=== PATIENT | female | born 1960 | race Caucasian/White ===

== ENCOUNTER 2024-09-06 05:51 | Day surgery (SDC) | payer MEDICARE ==
[2024-09-03 15:03] VITALS: BP 140/68; PULSE 107; RESP 17; TEMP 97.4
--- NOTE | 2024-09-03 15:25 | EKG ---
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
[2024-09-03 19:10] LABS: BASOPHILS # (AUTO) 0.06 K/uL (0.00-0.20); BASOPHILS % (AUTO) 0.7 % (0.0-5.0); EOSINOPHILS # (AUTO) 0.36 K/uL (0.00-0.70); EOSINOPHILS % (AUTO) 4.2 % (0.0-8.0); HEMATOCRIT 46.1 % (36-48); IMMATURE GRANULOCYTE ABSOLUTE 0.03 K/uL (0-1); LYMPHOCYTES # (AUTO) 2.5 K/uL (1.0-4.8); LYMPHOCYTES % (AUTO) 29.4 % (21.0-51.0); MEAN CORPUSCULAR HEMOGLOBIN 27.7 pg (27.0-33.0); MEAN CORPUSCULAR HGB CONC 31.9 g/dL (32.0-36.0); MEAN CORPUSCULAR VOLUME 86.8 fL (79-99); MONOCYTES # (AUTO) 0.5 K/uL (0.1-1.0); NEUTROPHILS # (AUTO) 5.1 K/uL (1.8-7.7); NEUTROPHILS % (AUTO) 59.3 % (40.0-77.0); PLATELET COUNT (AUTO) 274 K/uL (130-400); RED BLOOD CELL COUNT(AUTO) 5.31 MIL/uL (4.00-5.50); RED CELL DISTRIBUTION WIDTH 13.2 % (11.0-15.5); WHITE BLOOD COUNT (AUTO) 8.5 K/uL (4.8-10.8)
[2024-09-03 19:11] LABS: CREATININE 0.7 mg/dL (0.5-1.0); POTASSIUM 4.4 mmol/L (3.5-5.1)
[2024-09-03 19:15] LABS: INR 1.13 (0.85-1.15); PROTHROMBIN TIME 11.8 SEC (9.6-11.6)
[2024-09-03 19:17] LABS: PARTIAL THROMBOPLASTIN TIME 30.5 SEC (26.3-35.5)
[2024-09-06] VITALS (7 sets, daily range): BP systolic 103–129; BP diastolic 57–76; PULSE 83–103; RESP 14–16; TEMP 97–97.4
[~2024-09-06] VITALS: Ht 162.6 cm; Wt 75.9 kg
[~2024-09-06 05:51] MED LIST: APIX5TAB PO; ASPI-1146 PO; ATOR20TA65 PO; CARV3.12 PO; FURO20TA4 PO; MAGNESIUM GLYCINATE PO; [UNRECOGNIZED DRUG - OTHER] PO
--- NOTE | 2024-09-06 06:24 | EKG ---
[facility] Test Date: 2024-09-06 Test Time: 06:16:28 Pat Name: NICHOLAS SOTO Department: [facility] Room: [facility] Gender: F New Account Interviewer: [id number] : 1960 Requested By: RAUDEL PERKINS Order Number: [id number] Reading MD: Amanda Perkins Measurements Intervals [place] Rate: 92 P: 0 VT: 0 QRS: 55 QRSD: 86 T: 44 QT: 364 QTc: 451 Interpretive Statements Atrial fibrillation Consider anteroseptal infarct Nonspecific T abnormalities, inferior leads Compared to ECG 09/03/2024 14:38:24 T-wave abnormality now present Myocardial infarct finding still present Electronically Signed On 09-06-2024 15:06:46 CDT by Amanda Perkins Please click the below link to view image of tracing.
[2024-09-06] MEDS: LIDOCAINE HCL 2% VISCOUS 15 ML UDCUP PO ONE (07:08)
[2024-09-06] MEDS: 0.9%NACL 1000ML 1,000 ML IV SCH (07:09)
[2024-09-06] MEDS: FENTanyl CITRate PF 50 MCG/1 ML 2ML VIAL IVP ONE (07:58)
[2024-09-06] MEDS: MIDAZOLAM HCL 1 MG/ML 2ML VIAL IVP ONE (07:59)
[2024-09-06] MEDS ORDERED: DABI150C PO (08:40)
--- NOTE | 2024-09-06 08:48 | NUR ---
BOTH PT AND GIVEN VERBAL AND WRITTEN DISCHARGE INSTRUCTIONS. INSTRUCTIONS TO STOP ELIQUIS AND TO START PRADAXA WERE GIVEN WELL. IV REMOVED SITE ASYMPTOMATIC. PT WILL BE SENT OUT VIA WHEELCHAIR DRIVING
--- NOTE | 2024-09-06 15:12 | HMCSR ---
APPROVED REPORT EXAM: Transesophageal echocardiogram with color flow Doppler. INDICATION ICD: Atrial fibrillation Reason For Test : Rule out Intracardiac Thrombus. PROCEDURE After obtaining informed consent, patient underwent transesophageal echo in the Patient Room 15 . 15 mL 2% Viscous Lidocaine was given as a topical anesthetic prior to the administration of the consc ious sedation. Type of Sedation: please refer to medication administration record Sedation was administered by please refer to medication administration record. Sedation was achieved with please refer to medication administration record intravenously. Transesophageal probe was inserted and advanced into esophagus without difficulty by Amanda Perkins MD. WALLY was performed and images were obtained, probe was removed without complications. Throughout the procedure, the blood pressure, pulse oximetry, cardiac rhythm, and rate were monitored . Left Ventricle The left ventricle is normal size. Mild concentric left ventricular hypertrophy. LVEF is 35-40%. Inde terminate diastolic function. Right Ventricle The right ventricle is normal size. Systolic function is mildly reduced. Atria The left atrium is mildly dilated.Spontaneous contrast noted in left atrium. Let atrial appendage thr ombus noted. The right atrium is moderately dilated. Aortic Valve The aortic valve is trileaflet and opens well. Trace of aortic regurgitation is present. No aortic va lvular vegetation. There is no aortic valvular stenosis. Mitral Valve The mitral valve is normal in structure. There is trace to mild mitral valve regurgitation noted. No mitral valve vegetation. There is no mitral valve stenosis. Tricuspid Valve The tricuspid valve is normal in structure. There is no tricuspid valve regurgitation noted. No tricu spid valve vegetation. Pulmonic Valve The pulmonary valve is normal in structure. There is no pulmonic valvular regurgitation. Great Vessels The aortic root is normal in size. The ascending aorta apppears normal in size.The descending aorta a pppears normal in size. The IVC is normal in size and collapses >50% with inspiration. Pericardium There is no pericardial effusion. Conclusion The left ventricle is normal size. LVEF is 35-40%. The right ventricle is normal size. Systolic function is mildly reduced. The left atrium is mildly dilated.Spontaneous contrast noted in left atrium. Let atrial appendage thr ombus noted. The right atrium is moderately dilated. There is trace to mild mitral valve regurgitation noted. There is no pericardial effusion.
== END 2024-09-06 09:01 | disposition home or self-care (01) ==
LOC: DAH 05:51
PROVIDERS: ATTEND Student in an Organized Health Care Education/Training Program
DX: I48.91 Unspecified atrial fibrillation (principal); E78.2 Mixed hyperlipidemia; I11.0 Hypertensive heart disease with heart failure; I50.20 Unspecified systolic (congestive) heart failure; I25.2 Old myocardial infarction; Z79.01 Long term (current) use of anticoagulants; Z79.82 Long term (current) use of aspirin; Z79.899 Other long term (current) drug therapy
CPT/HCPCS: 80048; 85025; 85610; 85730; 36415; 93005 ×2; 93312; 99152; 93325; J3010; J7030; J2250; A4615; A4215; A4657; A4222; A4221; A4663; A4216; A4606; A4223 ×3; G0500

== ENCOUNTER 2024-11-05 06:29 | Day surgery (SDC) | payer MEDICARE ==
[2024-11-02 10:13] LABS: IMMATURE GRANULOCYTE ABSOLUTE 0.05 K/uL (0-1); NUCLEATED RED BLOOD CELLS 0.0 % (0.0-0.19); PLATELET COUNT (AUTO) 228 K/uL (130-400); RED BLOOD CELL COUNT(AUTO) 5.73 MIL/uL (4.00-5.50); RED CELL DISTRIBUTION WIDTH 13.2 % (11.0-15.5); WHITE BLOOD COUNT (AUTO) 8.9 K/uL (4.8-10.8)
[2024-11-02 10:20] LABS: CREATININE 0.8 mg/dL (0.5-1.0); GLOMERULAR FILTR. RATE CALC 81.0 mL/min (>90); GLUCOSE,RANDOM 104.0 mg/dL (70-105); SODIUM SERUM 142.0 mmol/L (136-145); UREA NITROGEN, BLOOD 10.0 mg/dL (7-18)
[2024-11-02 10:24] LABS: INR 1.15 (0.85-1.15)
[2024-11-02 10:38] VITALS: BP 150/65; PULSE 87; RESP 14; TEMP 97.3
--- NOTE | 2024-11-02 14:02 | EKG ---
[facility] Test Date: 2024-11-02 Test Time: 10:00:21 Pat Name: NICHOLAS SOTO Department: [facility] Room: Gender: F Lab Clerk: [id number] : 1960 Requested By: ZARA CLARK Order Number: [id number] Reading MD: Stanford Bell Measurements Intervals [place] Rate: 105 P: 0 ID: 0 QRS: 39 QRSD: 79 T: 33 QT: 351 QTc: 463 Interpretive Statements Atrial fibrillation with RVR Minimal ST depression, diffuse leads Compared to ECG 09/06/2024 06:16:28 ST (T wave) deviation now present Myocardial infarct finding no longer present T-wave abnormality no longer present Electronically Signed On 11-02-2024 16:06:13 CDT by Stanford Bell Please click the below link to view image of tracing.
[~2024-11-05] VITALS: Ht 162.6 cm; Wt 74.8 kg
[~2024-11-05 06:29] MED LIST changes: -APIX5TAB PO; -ASPI-1146 PO; +CARV12.511 PO; -CARV3.12 PO; +DABI150C PO; +DIGO125T71 PO; -MAGNESIUM GLYCINATE PO
[2024-11-05 06:40] VITALS: BP 138/65; PULSE 79; RESP 15; TEMP 97.3
[2024-11-05] MEDS ORDERED: 0.9%NACL 1000ML 1,000 ML IV SCH (07:00)
[2024-11-05] MEDS ORDERED: MIDAZOLAM HCL 1 MG/ML 2ML VIAL IVP ONE (07:00)
--- NOTE | 2024-11-05 08:20 | NUR ---
WALLY STARTED AT THIS TIME VSS NAD
--- NOTE | 2024-11-05 08:25 | NUR ---
WALLY FINISHED AT THIS TIME PT SPEAKING WITH STAFF DONAVAN VÁSQUEZ.
[2024-11-05] MEDS: LIDOCAINE HCL 2% VISCOUS 15 ML UDCUP PO ONE (08:35)
[2024-11-05] MEDS: MIDAZOLAM HCL 1 MG/ML 2ML VIAL IVP ONE (08:36)
--- NOTE | 2024-11-05 09:25 | NUR ---
BOTH PT AND GIVEN VERBAL AND WRITTEN DISCHARGE INSTRUCTIONS. IV REMOVED SITE ASYMPTOMATIC. PT AND INSTRUCTED TO REGISTER AGAIN FOR CATH TOMORROW. AND TO CONTINUE TO HOLD PRADAXA FOR TOMORROWS CATH. UNDERSTANDING BY BOTH
[2024-11-05 09:30] VITALS: BP 135/54; PULSE 69; RESP 15; TEMP 97.6
[2024-11-05 09:45] VITALS: BP 131/50; PULSE 69; RESP 14
[2024-11-05] MEDS ORDERED: DABI150C PO (09:56)
[2024-11-05 10:00] VITALS: BP 137/58; PULSE 69; RESP 15
[2024-11-05 10:15] VITALS: BP 123/51; PULSE 74; RESP 14
--- NOTE | 2024-11-15 12:17 | HMCSR ---
APPROVED REPORT EXAM: Transesophageal echocardiogram with color flow Doppler. INDICATION ICD: intracardiac thrombus Reason For Test : Rule out Intracardiac Thrombus. PROCEDURE After obtaining informed consent, patient underwent transesophageal echo in the Day Patient Room 15. 15 mL 2% Viscous Lidocaine was given as a topical anesthetic prior to the administration of the consc ious sedation. Type of Sedation: Conscious Sedation Sedation was administered by Vaibhav Holliday RN. Sedation was achieved with refer to chart- intravenously. Transesophageal probe was inserted and advanced into esophagus without difficulty by Dr. Amanda sarabia. WALLY was performed and images were obtained, probe was removed without complications. Throughout the procedure, the blood pressure, pulse oximetry, cardiac rhythm, and rate were monitored . The patient tolerated the procedure without adverse effects. Recovery from conscious sedation was une ventful and vital signs were stable. Left Ventricle Left ventricular cavity size is normal. There is normal left ventricular wall thickness. LVEF is 35-4 0%. Right Ventricle The right ventricle is normal size. The right ventricular systolic function is normal. Atria The left atrium is moderately dilated. Thrombus is present in the left atrial appendage. No evidence of PFO by color flow Doppler. The right atrium size is normal. Aortic Valve The aortic valve is normal in structure and function. No aortic regurgitation is present. There is no aortic valvular stenosis. Mitral Valve The mitral valve is normal in structure and function. There is no mitral valve regurgitation noted. T here is no mitral valve stenosis. Tricuspid Valve The tricuspid valve is normal in structure and function. There is no tricuspid valve regurgitation no raegan. Pulmonic Valve The pulmonary valve is normal in structure and function. There is no pulmonic valvular regurgitation. Great Vessels The aortic root is normal in size. Pericardium No pericardial effusion. Conclusion Left ventricular cavity size is normal. LVEF is 35-40%. The right ventricle is normal size. The right ventricular systolic function is normal. The left atrium is moderately dilated. Thrombus is present in the left atrial appendage. The right atrium size is normal. No evidence of PFO by color flow Doppler. No valvular pathology No pericardial effusion.
== END 2024-11-05 09:32 | disposition home or self-care (01) ==
LOC: DAH 06:29
PROVIDERS: ATTEND Student in an Organized Health Care Education/Training Program
DX: I51.3 Intracardiac thrombosis, not elsewhere classified (principal); I48.19 Other persistent atrial fibrillation; E78.5 Hyperlipidemia, unspecified; I10 Essential (primary) hypertension; I25.2 Old myocardial infarction; Z79.899 Other long term (current) drug therapy
CPT/HCPCS: 80048; 85025; 85610; 85730; 36415; 93005; 93312; 99152; 93325; J3010; J7030; J2250; A4615; A4215; A4657; A4222; A4221; A4663; A4216; A4606; A4223 ×3; 71045; 81001; 83880; 87086; 93458; 96360; 96361; 99156; C1769; J1644; J2312; J3490; Q9967; A4649; A6206; A6260; C1894; G0500; Q9965

== ENCOUNTER 2024-11-06 05:52 | Day surgery (SDC) | payer MEDICARE ==
[2024-11-05 11:29] VITALS: BP 143/57; PULSE 87; RESP 17; TEMP 97.7
[2024-11-05 11:38] LABS: APPEARANCE,URINE CLEAR (CLEAR); GLUCOSE, URINE (UA) NEGATIVE (NEGATIVE); LEUKOCYTE ESTERASE ,URINE 250 Leu/uL (NEGATIVE); NITRATE,URINE NEGATIVE (NEGATIVE); OCCULT BLOOD,URINE NEGATIVE (NEGATIVE)
[2024-11-05 11:39] LABS: ADD UA MICROSCOPIC YES
[2024-11-05 12:08] LABS: SQUAMOUS EPITHELIAL CELL,UR FEW /HPF (0-2)
--- NOTE | 2024-11-05 16:08 | NUR ---
REPORT REPORTED UA TO DR RAUDEL CLARK. URINE CULTURE STILL PENDING. OK TO PROCEED
[~2024-11-06] VITALS: Ht 162.6 cm; Wt 74.4 kg
[2024-11-06] VITALS (11 sets, daily range): BP systolic 100–162; BP diastolic 44–69; PULSE 53–87; RESP 12–20; TEMP 97.2–97.9
[2024-11-06] MEDS: 0.9%NACL 1000ML 1,000 ML IV SCH (06:29)
[2024-11-06] MEDS ORDERED: NITROGLYCERIN 50MG VIAL ONE (07:11)
[2024-11-06] MEDS ORDERED: LIDOCAINE HCL 400MG/20ML VIAL ONE (07:11)
[2024-11-06] MEDS ORDERED: HEParin-NS 1,000 UNIT/500 ML 1,000 ML IV ONE (07:11)
[2024-11-06] MEDS ORDERED: IOHEXOL 350 MG/ML 100ML INFUS..BTL IV ONE (07:11)
[2024-11-06] MEDS ORDERED: VERAPAMIL HCL 2.5 MG/ML VIAL ONE (07:14)
[2024-11-06] MEDS ORDERED: MIDAZOLAM HCL 1 MG/ML 2ML VIAL ONE ×2 (07:27→07:51)
--- NOTE | 2024-11-06 08:07 | PRN ---
PROCEDURE REPORT DATE OF PROCEDURE: Nov 06, 2024 GEODETIC SURVEYOR: [ Brad Perkins MD] PROCEDURE PERFORMED: Conscious sedation Ultrasound guided right radial artery access Selective left coronary artery angiogram Selective right coronary artery angiogram Left heart catheterization TR band 13 rickey over right radial artery INDICATION: HFrEF DESCRIPTION OF PROCEDURE: After informed consent was obtained, the patient was prepped and draped in the usual sterile fashion. A 6 [place]ic arterial sheath was inserted in the right radial artery using ultrasound guidance with first pass wall puncture. The arterial sheath was aspirated and flushed. A 6 [place]ic JL 3.5 was then advanced to the ascending aorta over an exchange length J-tip guidewire, was aspirated and flushed, and was used for selective coronary angiograms in multiple obliquities. A JR-4 was advanced in a similar fashion to the ascending aorta over the J-tipped guidewire and was used for selective right coronary angiograms in multiple oblique views with findings as outlined below. The JR-4 catheter advanced into the LV and pressures were obtained with a pull-back across the aortic valve. A TR band was placed over right radial artery. FLUOROSCOPY TIME: 2.2 min LEFT HEART HEMODYNAMICS: LVEDP 10 mm Hg and no gradient Ao CORONARY ANGIOGRAM: LEFT MAIN: Patent and 0% stenosis. Gives rise to LCx and LAD. LEFT ANTERIOR DESCENDING: Large vessel giving rise to two Diagonal branches. There luminal irregularities with COLTON 3 flow. Diags are widely patent LEFT CIRCUMFLEX: Large and gives rise to two OM branches. 0% stenosis. RIGHT CORONARY ARTERY: Large, dominant vessel giving rise to PDA and PL branches. 0% stenosis. HEMOSTASIS: TR band 12 rickey over right radial artery INTERVENTIONS: None. COMPLICATIONS: None FINDINGS: Patent coronaries NICM/Tachymediated ESTIMATED BLOOD LOSS: 5 cc RECOMMENDATIONS/INSTRUCTIONS: Aggressive risk factor modification. Refer to EP for Afib/flutter Rx Optimize GDMT Follow up with Amanda Perkins MD 1-2 weeks post DC Radial arm precautions CONTRAST DELIVERED TO PATIENT (mL): 30cc MD EDUARDO Collier JAMES R MD Nov 06, 2024 08:07
[2024-11-06] MEDS ORDERED: DEXTROSE 50%-WATER 50 ML DISP.SYRIN IV PRN (08:30)
[2024-11-06] MEDS ORDERED: 0.9%NACL 1000ML 1,000 ML IV SCH (08:30)
[2024-11-06] MEDS ORDERED: GLUCAGON 1MG KIT 1 MG ML IM PRN (08:30)
--- NOTE | 2024-11-06 09:36 | HMCIMG ---
EXAM: CR Chest, single view CLINICAL HISTORY: Preoperative. COMPARISON: None provided. FINDINGS: The lungs show no infiltrate or other acute findings. No pleural effusion or pneumothorax. The cardiomediastinal silhouette is within normal limits. No acute osseous abnormality. IMPRESSION: No acute cardiopulmonary pathology is evident. /[place]
--- NOTE | 2024-11-06 11:10 | NUR ---
VASC BAND: VASC BAND REMOVED WITH NO ACTIVE BLEEDING PRESENT. CLEANSED AREA WITH CHLORAPREP FOLLOWED BY APPLYING STERILE 2X2 GAUZE THEN 2X2 TEGADERM. NO REDNESS/SWELLING NOTED TO SURROUNDING AREA RT WRIST.
--- NOTE | 2024-11-06 11:20 | NUR ---
ACTIVITY/URINARY: ASSISTED TO STANDING POSITION WITHOUT COMPLAINING OF DIZZINESS. AMBULATED TO BATHROOM WITH ASSISTANCE. PT VOIDED QS URINE IN TOILET WITHOUT DIFFICULTY. ASSISTED BACK TO BED AT 80 DEGREE ANGLE.
== END 2024-11-06 12:20 | disposition home or self-care (01) ==
LOC: DAH 05:52
PROVIDERS: ATTEND Student in an Organized Health Care Education/Training Program
DX: I25.118 Atherosclerotic heart disease of native coronary artery with other forms of angina pectoris (principal); I11.0 Hypertensive heart disease with heart failure; I50.22 Chronic systolic (congestive) heart failure; E78.5 Hyperlipidemia, unspecified; Z79.899 Other long term (current) drug therapy
CPT/HCPCS: 83880; 87086; 81001; 36415; 71045; 93458; 99156; C1769; C1894; A4649; J3010; J3490 ×3; J7030; J1644 ×2; J2250 ×2; Q9967; A4215; A4222; A6260; A4221; A4663; A4216; A6206; A4606; Q9965; A4223 ×3; 96360; 96361